=== PATIENT | male | born 1940 | race Native Hawaiian/Other Pacific Islander ===

== ENCOUNTER 2017-08-25 08:47 | Day surgery (SDC) | payer MEDICARE ==
[2017-08-25] MEDS ORDERED: Lactated Ringer's 1,000 ML IV ONE (08:59)
[2017-08-25] MEDS ORDERED: Propofol 10 mg/ml Inj (20 ML) ONE (10:22)
[2017-08-25] MEDS ORDERED: Lidocaine 2% MPF (5 ml) Inj ONE (10:23)
[2017-08-25 11:09] VITALS: TEMP 97; O2SAT 100
[2017-08-25 11:37] VITALS: BP 139/67; PULSE 77; RESP 15
== END 2017-08-25 11:39 | disposition home or self-care (01) ==
LOC: H.ENDO 08:47
PROVIDERS: ATTEND Internal Medicine Gastroenterology
DX: Z12.11 Encounter for screening for malignant neoplasm of colon (principal); K64.8 Other hemorrhoids; K57.30 Diverticulosis of large intestine without perforation or abscess without bleeding
CPT/HCPCS: 45378; J2704; J7120